=== PATIENT | male | born 1985 | race Caucasian/White ===

== ENCOUNTER 2017-06-18 19:44 | Emergency (ER) | END 2017-06-18 22:55 | disposition home or self-care (01) ==

== ENCOUNTER 2017-07-24 23:33 | Emergency (ER) | END 2017-07-25 02:20 | disposition home or self-care (01) ==

== ENCOUNTER 2018-04-04 17:40 | Emergency (ER) | END 2018-04-04 19:31 | disposition home or self-care (01) ==

== ENCOUNTER 2019-02-14 19:10 | Emergency (ER) | payer MEDICAID ==
[~2019-02-14] VITALS: Ht 165.1 cm; Wt 78.0 kg
[~2019-02-14 19:10] MED LIST: ACET325T33 PO; BISM262O23 PO; CIPR500T4 PO; IBUP-1542 PO; OFLO5DRO46 RIGHT EYE; ONDA4TAB14 PO; TRAM50TA2 PO
[2019-02-14 19:34] VITALS: BP 131/71; PULSE 67; RESP 16; Ht 165.1 cm; Wt 78.0 kg
[2019-02-14] MEDS ORDERED: ONDANSETRON (ODT) 4 MG TAB ODT STA (20:12)
[2019-02-14] MEDS ORDERED: ACETAMINOPHEN 325 MG TAB PO ONE (20:30)
[2019-02-14] MEDS ORDERED: IBUPROFEN 600 MG TAB PO ONE (21:00)
== END 2019-02-14 21:16 | disposition home or self-care (01) ==
LOC: FTE 19:10
DX: R19.7 Diarrhea, unspecified (principal)
CPT/HCPCS: 36415; 74176; 80053; 81001; 83690; 85025; Z7502; Z7610